=== PATIENT | male | born 1995 | race Caucasian/White ===

== ENCOUNTER 2016-10-23 00:56 | Inpatient (IN) | payer OTHER ==
[~2016-10-23] VITALS: Ht 162.6 cm; Wt 64.9 kg
[2016-10-23] MEDS ORDERED: NS 1,000 ML IV ONE (01:15)
[2016-10-23 01:39] VITALS: O2SAT 100
[2016-10-23 01:41] LABS: ABG BASE EXCESS -3.1 (-2.0-2.0); ABG PARTIAL PRESSURE O2 146.5 mmHg (75.0-100.0); ABG TOTAL CO2 22.1 MEQ/L (22.0-29.0); ABG pH (ARTERIAL) 7.396 UNITS (7.350-7.450)
[2016-10-23 01:48] LABS: BASO % 0.6 % (0.0-1.0); EOS # 0.1 K/mm3 (0.0-0.50); EOS % 1.6 % (0.0-3.0); LARGE UNSTAINED CELL # 0.1 K/mm3 (0.0-0.4); LARGE UNSTAINED CELL % 1.6 % (0.0-4.0); MEAN CORPUSCULAR HEMOGLOBIN 31.6 pg (27.0-33.0); MEAN CORPUSCULAR HGB CONC 34.8 g/dl (32.0-36.5); MEAN CORPUSCULAR VOLUME 90.8 fl (80.0-96.0); MONO # 0.3 K/mm3 (0.0-0.8); MONO % 4.7 % (0.0-5.0); NEUTROPHILS # 4.2 K/mm3 (1.8-7.7); NEUTROPHILS % 63.5 % (36.0-66.0); PLATELET COUNT, AUTOMATED 216 k/mm3 (150-450); RED CELL DISTRIBUTION WIDTH 12.7 % (11.5-14.5); WHITE BLOOD COUNT 6.6 K/mm3 (4.0-10.0)
[2016-10-23 01:51] LABS: ALBUMIN 4.3 GM/DL (3.2-5.2); ALKALINE PHOSPHATASE 105 U/L (45-117); ALT/SGPT 21 U/L (12-78); ANION GAP 11 MEQ/L (8-16); AST/SGOT 26 U/L (15-37); BILIRUBIN,DIRECT 0.2 MG/DL (0.0-0.2); BILIRUBIN,TOTAL 0.7 MG/DL (0.2-1.0); BLOOD UREA NITROGEN 7 MG/DL (7-18); CALCIUM LEVEL 8.1 MG/DL (8.5-10.1); CARBON DIOXIDE LEVEL 27 MEQ/L (21-32); CHLORIDE LEVEL 105 MEQ/L (98-107); CREATININE FOR GFR 0.88 MG/DL (0.70-1.30); GLUCOSE, FASTING 75 MG/DL (70-105); POTASSIUM SERUM 4.1 MEQ/L (3.5-5.1); SODIUM LEVEL 143 MEQ/L (136-145); TOTAL PROTEIN 7.6 GM/DL (6.4-8.2)
[2016-10-23 03:15] LABS: METHADONE URINE NEGATIVE (NEGATIVE)
--- NOTE | 2016-10-23 04:40 | REPUSA ---
CLINICAL HISTORY: Overdose. TECHNIQUE: Multiple axial brain CT scan sections were obtained from base to vertex without contrast a dministration. COMMENTS: The study shows normal configuration of sella turcica. There are no intra or extra-axial collections. There is no mass effect or midline shift. There is no evidence of hematoma formation. No hydrocephal us is present. No abnormal calcifications are noted. No significant abnormalities are seen either in the posterior fossa or supratentorial compartment. The sinuses and mastoid air cells are patent. IMPRESSION: No evidence of acute intracranial pathology. Thank you for your kind referral of this patient.
[2016-10-23] MEDS ORDERED: LORazepam 2 MG/ML VIAL (J2060) IV PRN ×2 (06:15)
[2016-10-23] MEDS: NS 1,000 ML IV SCH ×3 (06:15→20:05)
--- NOTE | 2016-10-23 06:52 | HPE ---
DATE OF ADMISSION: 10/23/2016 PRIMARY CARE PROVIDER: [facility] CHIEF COMPLAINT: Unresponsiveness. 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 The patient himself is nonverbal at this time and so the history is obtained via verbal report from the emergency department (ED) provider and the patient's girlfriend who is bedside. She states that she was with him earlier on in the day, he was in his usual state of health, and when she passed by to go visit him in the evening she found an emergency response team in his barr[place] as he was unresponsive. She entered the room and noted that he normally takes a sleep aid, diphenhydramine 25 mg tablets, she tells me that he quite frequently takes two of them to help him sleep at night as he suffers from significant insomnia. She denies that he has expressed any suicidal or homicidal ideation prior to the evening. The pill bottle is a 100 tablet bottle but she states that the patient has had it for a significant amount of time and although some people in the barracks had said there was 60 pills in the bottle, she feels it was more likely closer to 20. She states that he does not have any other medications, [id number] or prescription, and there were no illicit substances in his barracks. At the present time the patient does not answer questions or follow commands. PAST MEDICAL HISTORY: Per the patient's girlfriend: None. PAST SURGICAL HISTORY: Appendectomy. 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 He has a girlfriend who comes into [place] emergency room[place] She denies tobacco, admits that he does drink occasionally. FAMILY HISTORY: Unable to be obtained. REVIEW OF SYSTEMS: Unable to be obtained. ALLERGIES: Unable to be obtained, but the girlfriend does not know of any. PHYSICAL EXAMINATION: The patient is tachycardic at 135, there is no documented temperature in the emergency room (ER), respiratory rate is 18, blood pressure 139/86, oxygen saturation 99% on room air. GENERAL: He is a young, well-built, muscular, male who is sitting in the stretcher. He is awake, alert, he makes eye contact and tracks, but does not follow commands. He is grasping things in the air in front of him in an attempt to get a stretcher and is calmed down by his girlfriend. He does appear to be quite tremulous and is in mild distress. HEENT: Dilated pupils, very dry mucous membranes. CARDIOVASCULAR: S1, S2, regular and tachycardic. RESPIRATORY EXAM: Clear. ABDOMINAL EXAM: Diminished bowel sounds. EXTREMITIES: No clubbing, cyanosis, or edema. LABORATORY STUDIES: WBC 6.6, hemoglobin 15.1, hematocrit 43.3, platelet count 216. Chemistry panel: Sodium 143, potassium 4.1, chloride 105, bicarbonate 27, BUN 7, creatinine 0.8. TSH within normal limits. Blood gas: 7.3, pCO2 35, pO2 146. Toxicology: 0.155 ethyl alcohol (EtOH) level, but otherwise is negative. IMAGING: The patient had a CT scan of the head which revealed no evidence of acute intracranial pathology. Chest xray, which does not have a formal report at this time, but does not appear to have any acute findings by my quick read. ASSESSMENT AND PLAN: This is a 21-year-old man status post diphenhydramine overdose. 1. Diphenhydramine overdose and alcohol intoxication. It is unclear at this time if this was a suicide attempt or not. The girlfriend could not express any reason why the patient would have taken more than his usual two pills, however he does appear to be behaving quite classically as an anticholinergic toxicity. His EKG does not show any QRS or QT prolongation. I have spoken with Poison Control who have recommended Valium 5 mg intravenous (IV) as well as Ativan as needed. We will give him these medications and should he not respond or remain hypertensive and unable to be restful, may require physostigmine. At this time, we cannot really know for sure if the patient has taken any other substances that are potentially not picked up by our toxicology screen. The history is obtained mostly by the patient's girlfriend who is bedside and I suspect she might be minimizing his presentation. Will recheck an EKG. I did discuss with patient's girlfriend at bedside that as we do not know the true amounts he ingested, there is a chance this could get significantly worse before it gets better. We will provide him normal saline at 125 mL/hour, admit him to the progressive care unit, and monitor him on telemetry. We will have him on a one-to-one sitter. He will likely require a psychiatric consultation after he is detoxed from his overdose. 2. Deep venous thrombosis (DVT) prophylaxis. The patient will be on Lovenox. DISPOSITION: The patient is admitted to the progressive care unit to the care of Dr. Fonseca who will continue following the patient at 7 a.m.
[2016-10-23 09:34] LABS: MEAN CORPUSCULAR HEMOGLOBIN 31.4 pg (27.0-33.0); MEAN CORPUSCULAR HGB CONC 34.8 g/dl (32.0-36.5); MEAN CORPUSCULAR VOLUME 90.4 fl (80.0-96.0); RED CELL DISTRIBUTION WIDTH 12.6 % (11.5-14.5); WHITE BLOOD COUNT 11.6 K/mm3 (4.0-10.0)
[2016-10-23 09:54] LABS: ANION GAP 10 MEQ/L (8-16); BLOOD UREA NITROGEN 6 MG/DL (7-18); CALCIUM LEVEL 8.8 MG/DL (8.5-10.1); CARBON DIOXIDE LEVEL 23 MEQ/L (21-32); CHLORIDE LEVEL 106 MEQ/L (98-107); CREATININE FOR GFR 0.94 MG/DL (0.70-1.30); GLUCOSE, FASTING 72 MG/DL (70-105); POTASSIUM SERUM 4.4 MEQ/L (3.5-5.1); SODIUM LEVEL 139 MEQ/L (136-145)
[2016-10-23] MEDS ORDERED: ATROPINE SULF 1MG/10ML SYRINGE (J0461) IV PRN (10:15)
[2016-10-23] MEDS ORDERED: PHYSOSTIGMINE SALICYLATE 2 MG/2 ML AMP IV ONE (10:30)
[2016-10-23 10:35] VITALS: BP 148/87
--- NOTE | 2016-10-23 10:51 | REP ---
REASON: Drug overdose. COMPARISON: None. FINDINGS: The technique utilized in obtaining the radiograph has magnified the cardiac silhouette and accentuated the interstitial markings. The superior mediastinal structures are midline. The cardiac silhouette is unremarkable in size, shape, and position. The diaphragmatic surfaces of the lungs are regular, and the costophrenic angles are clear. The pulmonary jama are clear. The imaged osseous structures are intact. IMPRESSION: There is no acute cardiopulmonary disease. Signed by Antonio Zepeda DO 10/23/2016 11:25 A
[2016-10-23] MEDS: ENOXAPARIN 40 MG/0.4 ML SYRINGE (J1650) SC SCH (11:26)
[2016-10-23] MEDS: PANTOPRAZOLE 40MG INJ (PROTONIX) (C9113) IV SCH (11:26)
[2016-10-23 12:00] VITALS: BP 136/106
--- NOTE | 2016-10-23 14:43 | ECGEPIP ---
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
[2016-10-23 16:00] VITALS: BP 134/79
--- NOTE | 2016-10-23 19:48 | ECGEPIP ---
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
--- NOTE | 2016-10-23 19:50 | ECGEPIP ---
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
[2016-10-23 20:00] VITALS: BP 146/78
[2016-10-24] VITALS: BP 138/83
[2016-10-24 04:00] VITALS: BP 123/61
[2016-10-24] MEDS: NS 1,000 ML IV SCH ×2 (04:02→11:43)
[2016-10-24 05:20] LABS: MEAN CORPUSCULAR HEMOGLOBIN 30.9 pg (27.0-33.0); MEAN CORPUSCULAR HGB CONC 33.8 g/dl (32.0-36.5); MEAN CORPUSCULAR VOLUME 91.4 fl (80.0-96.0); RED CELL DISTRIBUTION WIDTH 12.3 % (11.5-14.5); WHITE BLOOD COUNT 6.1 K/mm3 (4.0-10.0)
[2016-10-24 05:23] LABS: ANION GAP 8 MEQ/L (8-16); BLOOD UREA NITROGEN 15 MG/DL (7-18); CALCIUM LEVEL 8.1 MG/DL (8.5-10.1); CARBON DIOXIDE LEVEL 28 MEQ/L (21-32); CHLORIDE LEVEL 105 MEQ/L (98-107); CREATININE FOR GFR 1.08 MG/DL (0.70-1.30); GLUCOSE, FASTING 73 MG/DL (70-105); POTASSIUM SERUM 4.1 MEQ/L (3.5-5.1); SODIUM LEVEL 141 MEQ/L (136-145)
[2016-10-24 08:00] VITALS: BP 124/66
[2016-10-24] MEDS: ENOXAPARIN 40 MG/0.4 ML SYRINGE (J1650) SC SCH (08:54)
[2016-10-24] MEDS: PANTOPRAZOLE 40MG INJ (PROTONIX) (C9113) IV SCH (08:54)
[2016-10-24 12:00] VITALS: BP 119/67
--- NOTE | 2016-10-24 14:07 | DS.PDOC ---
Discharge Summary General Date of Admission Oct 23, 2016 at 06:25 Date of Discharge Discharge Summary PROCEDURES PERFORMED DURING STAY: None. ADMITTING DIAGNOSES: 1. . Benadryl overdose DISCHARGE DIAGNOSES: 1. . Benadryl overdose COMPLICATIONS/CHIEF COMPLAINT: Diphenhydramine Overdose. HISTORY OF PRESENT ILLNESS: . 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 According to the emergency response team at the [facility], the patient was found unresponsive. The patient had apparently taken an unknown amount of diphenhydramine. The patient was brought to [facility] for further evaluation and management. In the ER, the patient was noted to be nonresponsive and very agitated. His vital signs including his heart rate were noted to be in the 140s to 150s. In addition, the patient also had an elevated blood pressure level. The patient was started on Ativan and Valium with supportive treatment with IV fluid hydration. During the patient's stay here in the hospital, poison control was contacted regarding the patient's condition. They recommended that the patient receive physostigmine as he persistently displayed anti-cholinergic symptoms despite benzodiazepine therapy. The patient's EKG was checked, and the QRS duration and QTc intervals were noted to be within normal limits. The patient was given the aforementioned therapy, and subsequently improved significantly. Upon awakening , the patient states that he took the Benadryl medication as he was upset about his relationship with his girlfriend. At this time, the patient remains upset and depressed about his current situation. However, medically the patient has been stable. He has been monitored on telemetry and there have been no acute findings. Of note, poison control was contacted, and they have medically cleared the patient for transfer to the psych service. I have discussed the case with Dr. Lundberg of psychiatry, who will evaluate the patient for admission into the inpatient mental health unit. DISCHARGE MEDICATIONS: Please see below. ALLERGIES: Please see below. PHYSICAL EXAMINATION ON DISCHARGE: VITAL SIGNS: Please see below. GENERAL: Awake, alert, in no acute distress HEENT: Normocephalic, atraumatic NECK: No JVD CARDIOVASCULAR EXAMINATION: Normal rate, normal rhythm RESPIRATORY EXAMINATION: Clear to auscultation bilaterally ABDOMINAL EXAMINATION: Soft, nontender, nondistended EXTREMITIES: No erythema, tenderness of the extremities LABORATORY DATA: Please see below. IMAGING: CLINICAL HISTORY: Overdose. TECHNIQUE: Multiple axial brain CT scan sections were obtained from base to vertex without contrast administration. COMMENTS: The study shows normal configuration of sella turcica. There are no intra or extra-axial collections. There is no mass effect or midline shift. There is no evidence of hematoma formation. No hydrocephalus is present. No abnormal calcifications are noted. No significant abnormalities are seen either in the posterior fossa or supratentorial compartment. The sinuses and mastoid air cells are patent. IMPRESSION: No evidence of acute intracranial pathology. Thank you for your kind referral of this patient. PROGNOSIS: Medically stable at this time ACTIVITY: As tolerated. DIET: . Regular diet DISCHARGE PLAN: DISPOSITION: . DISCHARGE INSTRUCTIONS: 1. . Patient to be discharged to inpatient mental health unit for further psychiatric stabilization. DISCHARGE CONDITION: Stable. TIME SPENT ON DISCHARGE: Greater than 30 minutes. Vital Signs/I&Os Vital Signs Date Time Temp Pulse Resp B/P Pulse Ox O2 Delivery O2 Flow Rate FiO2 10/24/16 12:00 97.2 75 20 119/67 98 Room Air 10/23/16 01:39 2 I&O- Last 24 Hours up to 6 AM 10/24/16 06:00 Intake Total 2975 ml Output Total 875 ml Balance 2100 ml Laboratory Data Labs 24H Laboratory Tests 2 10/24/16 04:14: Anion Gap 8, Blood Urea Nitrogen 15#, Creatinine 1.08, Sodium Level 141, Potassium Level 4.1, Chloride Level 105, Carbon Dioxide Level 28, Calcium Level 8.1L CBC/BMP Laboratory Tests 10/24/16 04:14 Calcium Level 8.1 L, Red Blood Count 4.42, Mean Corpuscular Volume 91.4, Mean Corpuscular Hemoglobin 30.9, Mean Corpuscular Hemoglobin Concent 33.8, Red Cell Distribution Width 12.3 Discharge Medications No Active Prescriptions or Reported Meds Allergies Coded Allergies: No Known Allergies (Unverified , 10/23/16) ZIGGY OLIVAREZ MD Oct 24, 2016 14:07
[2016-10-24 16:00] VITALS: BP 133/73
[2016-10-24 19:55] VITALS: BP 136/81
[2016-10-25 06:00] VITALS: BP 116/56
[2016-10-25 07:10] LABS: MEAN CORPUSCULAR HEMOGLOBIN 31.9 pg (27.0-33.0); MEAN CORPUSCULAR HGB CONC 34.8 g/dl (32.0-36.5); MEAN CORPUSCULAR VOLUME 91.7 fl (80.0-96.0); RED CELL DISTRIBUTION WIDTH 12.3 % (11.5-14.5); WHITE BLOOD COUNT 5.4 K/mm3 (4.0-10.0)
[2016-10-25 07:23] LABS: ANION GAP 8 MEQ/L (8-16); BLOOD UREA NITROGEN 12 MG/DL (7-18); CALCIUM LEVEL 8.2 MG/DL (8.5-10.1); CARBON DIOXIDE LEVEL 29 MEQ/L (21-32); CHLORIDE LEVEL 106 MEQ/L (98-107); GLUCOSE, FASTING 99 MG/DL (70-105); POTASSIUM SERUM 3.6 MEQ/L (3.5-5.1); SODIUM LEVEL 143 MEQ/L (136-145)
[2016-10-25] MEDS: ENOXAPARIN 40 MG/0.4 ML SYRINGE (J1650) SC SCH (09:40)
[2016-10-25 14:00] VITALS: BP 133/78
--- NOTE | 2016-10-25 14:19 | IPNPDOC ---
Text Note Date of Service The patient was seen on 10/25/16. NOTE Subjective: 21 yo M was seen and examined at bedside. She denies runny nose, sore throat, ear pain, cough, weakness, fatigue, headache, dizziness, fevers, chills , chest pain, SOB, palpitations, nausea, vomiting, diarrhea, constipation, abdominal pain, rashes/lesions. Denies urinary changes, urinary retention, dysuria, hematuria, hematochezia. Objective: Vitals: T 97.4, P 83, RR 18, BP 116/56 (76), Pulse Ox: 94% on room air. I's/O's: 2590/750 mLs. +1840 mLs balance. Voids: 1. BMs: 0. General: Withdrawn male resting comfortably in bed, sitting up at head of bed. Patient awake, alert and oriented, verbal and able to answer questions appropriately. He does not appear to be in any acute distress. HEENT: Normocephalic Atraumatic. Grossly normal hearing bilaterally. Sclera Nonicteric. No external nasal lesions. Endocrinology: No thyromegaly. Neck: Supple. No cervical LAD bilaterally. Heart: Regular rate and rhythm, normal S1-S2. No murmurs, rubs, clicks or gallops Chest: Symmetrical chest rise bilaterally. Lungs: Clear to auscultation bilaterally. No wheezes, rales, or rhonchi. Abdomen: Active bowel sounds, soft, nontender, no masses to palpation. Extremities: No clubbing, cyanosis, edema. Without amputations/deformities. No pedal edema. Integumentary: No rashes or lesions observed. MSK: Can sit up without dizziness. Vascular: +2 radial pulses bilaterally. Psychiatric: Very withdrawn with a flat affect and low mood. Disinterested in answering questions. Low verbal tone. No signs of anxiety. Signs of depression seem evident. Laboratory data: Please see below. Imaging: No imaging done today. Assessment/Plan: ASSESSMENT: 21-year-old male is presenting for diphenhydramine overdose and alcohol intoxication. PLAN: #1. Diphenhydramine Overdose and Alcohol Intoxication status-post valium, ativan , atropine, and physostigmine: Sinus Tachycardia resolved. Patient's rate at 84 today. Prolonged QTc on EKG of 473 has resolved in most recent EKG with QTc of 363. QT prolongation most likely secondary to benadryl overdose. Patient having no acute complaints today and is stable, awake, alert, and oriented. No further medical management at this time. #2. Possible Suicidal Attempt/Harm to Self: Is being discharged from IM service and admitted/transferred to Inpatient Psychiatry Mental Health Unit today for investigation and treatment of any psychiatric condition or depressed mood or evaluation for why patient was trying to harm self. DVT prophylaxis: Lovenox. Immunizations as per protocol. VS,Fishbone, I+O VS, Fishbone, I+O Laboratory Tests 10/25/16 06:35 Calcium Level 8.2 L, Red Blood Count 4.47, Mean Corpuscular Volume 91.7, Mean Corpuscular Hemoglobin 31.9, Mean Corpuscular Hemoglobin Concent 34.8, Red Cell Distribution Width 12.3 Vital Signs Date Time Temp Pulse Resp B/P Pulse Ox O2 Delivery O2 Flow Rate FiO2 10/25/16 06:00 97.4 83 18 116/56 94 Room Air 10/23/16 01:39 2 I&O- Last 24 Hours up to 6 AM 10/25/16 06:00 Intake Total 2080 ml Output Total 750 ml Balance 1330 ml GME ATTESTATION GME ATTESTATION My preceptor for this patient encounter was Dr. Benedict Berger, and was physically present in the building during the encounter and was fully available. As needed , all aspects of the patient interview, examination, medical decision making process, and medical care plan development were reviewed and approved by the preceptor. Preceptor is aware and concurs with the plan as stated in the body of this note and will attest to such by his/her cosignature. ZIGGY EWING OGMN-1 Oct 25, 2016 14:19 Output Total 750 ml Balance 1330 ml ZIGGY EWING [facility] Oct 25, 2016 14:19
== END 2016-10-25 15:30 | DRG 918 ==
LOC: EDBD 00:56 → M ED 06:19 → M ED INP 06:25 → M ICU 10:40 → M MS5PR 10-24 19:36
PROVIDERS: ADMIT Internal Medicine; ATTEND Internal Medicine
DX: T45.0X2A Poisoning by antiallergic and antiemetic drugs, intentional self-harm, initial encounter (principal); F10.129 Alcohol abuse with intoxication, unspecified; Z91.5 Personal history of self-harm

== ENCOUNTER 2016-10-25 15:40 | Inpatient (IN) | payer OTHER ==
[~2016-10-25] VITALS: Ht 162.6 cm; Wt 62.6 kg
[2016-10-25 15:54] VITALS: BP 123/69
[2016-10-25] MEDS ORDERED: MAALOX 30 ML SUSP *UDC PO PRN (17:30)
[2016-10-25] MEDS ORDERED: MOM 30ML SUSPENSION UDC PO PRN (17:30)
[2016-10-25] MEDS ORDERED: ACETAMINOPHEN TAB 650MG DOSE (2X325MG) PO PRN (17:30)
[2016-10-25] MEDS ORDERED: traZODone 50 MG TAB PO PRN (17:30)
[2016-10-26 06:00] VITALS: BP 108/57
--- NOTE | 2016-10-26 08:59 | CR ---
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 The patient admitted that he had taken an overdose of diphenhydramine and that he had suicidal intent. He admits that he has been feeling depressed since his girlfriend of the past year and a half broke up with him. He says that the girlfriend says that he is not supportive of her schooling and that is why she broke up with him. He had been feeling hopeless and helpless. The patient does have a problem with chronic insomnia and takes diphenhydramine as a sleep aid. I did not elicit any other symptoms from the patient. I did not elicit any hypomanic or manic like symptoms or obsessive compulsive disorder (OCD) symptoms or posttraumatic stress disorder (PTSD) symptoms. PAST PSYCHIATRIC HISTORY: He denies any prior inpatient or outpatient psychiatric treatment. He denies that he has ever taken psychotropic medication. He denies that he has ever made a suicidal attempt in the past. FAMILY HISTORY: He says that he thinks there might be some family members with some psychiatric problems but he says "nobody talks about it". He denies any suicides in the family. SUBSTANCE ABUSE HISTORY: He denies any problems with alcohol or drugs. ABUSE HISTORY: He denies any history of being physically or sexually abused. MEDICAL HISTORY: The patient denies any past history of any medical problems. MENTAL STATUS EXAMINATION: He is alert and oriented times three. Eye contact is fair. He had just awoken and he seemed to be a little zones out at first but he was pleasant. He was not verbally spontaneous. There was no formal thought disorder noted. Psychomotor activity was decreased. His mood was depressed. Affect was flat. He was not psychotic. He was denying being suicidal, however admitted to having suicidal intent when he overdosed. He denied homicidal ideations. Concentration is fair. Mood was depressed. Memory grossly intact. Insight and judgment is poor. DIAGNOSIS: Other specified depressive disorder, rule out adjustment disorder with depressed mood without major depressive disorder. TREATMENT PLAN: At this point, the patient made a serious suicidal attempt via overdose. He remains very depressed and still a danger to himself. He will be transferred to the inpatient mental health unit as soon as he is medically cleared.
--- NOTE | 2016-10-26 10:22 | HPEPDOC ---
Medical History and Physical Date of Admission Oct 25, 2016 at 15:40 History and Physical PCP: MY ATTENDING: Dr. Benedict Berger HPI: 21yoM admitted to [facility] for unspecified depressive disorder, being medically examined today. No acute medical complaints today. Pt was admitted from 10/23/16-10/25/16 related to diphenhydramine overdose of unknown amount. Patient was medically stabilized and cleared for admission to [facility] 10/25/16. Denies any fevers, chills, weakness, fatigue, LARSEN, CP, SOB, cough, palpitations, abdominal pain, N/V/D or changes in bowel or bladder habits. 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 ROS: As noted in HPI, otherwise 11pt ROS of systems reviewed and remarkable only for subungual hematoma left middle finger, the patient states related to slamming a door accidentally on his finger a few weeks ago. PE: GEN: 21yoM, appears stated age. Well-nourished, well developed. No acute distress. Alert and oriented x 3. Pleasant, interactive. HEENT: Normocephalic, atraumatic. Pupils are equal, round, and reactive to light. Extraocular movements are intact. No nystagmus appreciated. Sclera are nonicteric. Conjunctiva without injection. Nose midline. Nasal turbinates without bogginess. EACs both patent BL. TMs both visualized and balbuena with good cone of light, no bulging or erythema. No facial asymmetry. Moist mucous membranes. Dentition fair. Pharynx pink and moist, no cobblestoning. Neck supple , trachea midline. No lymphadenopathy or thyromegaly appreciated. CHEST: Regular rate and rhythm, +S1, +S2 LUNGS: Clear to auscultation bilaterally. No wheezes, rales, or rhonchi. Breathing appears symmetric and easy. Patient is speaking in full sentences. No accessory muscle use. ABD: Round, soft, non-tender, non-distended. +Bowel sounds throughout. No rebound or guarding. No costovertebral angle tenderness. EXT: Pulses 2+ bilaterally dorsalis pedis and radial. No lower extremity edema appreciated. SKIN: [place], dry, warm. Capillary refill <2sec. No rashes. NEURO: Alert and oriented x 3. Cranial nerves III-XII are intact. No focal deficits appreciated. EK10/23/16 SINUS TACHYCARDIA NONSPECIFIC T-WAVE ABNORMALITY ABNORMAL RHYTHM ECG NO PRIOR A&P: 21yoM admitted to [facility] for unspecified depressive disorder, 1. Psych. Plan per Psychiatry. EKG on file. 2. Nicotine dependence. Patch available. 3. Borderline EKG. No cardiac signs or symptoms appreciated on exam, follow with PCP. 4. Follow up with PCP on discharge. 5. Staff member present throughout exam, rajinder Drummond. Vital Signs Vital Signs Label Value Date Time Patient Temperature 97.9 degrees F 10/26/16 0600 Pulse 60 10/26/16 0600 Respiratory Rate 16 bpm 10/26/16 0600 Blood Pressure Assessment 108/57 (74) 10/26/16 0600 Bedside Pulse Oximetry 97 % 10/25/16 1554 Item Value Date Time Oxygen Delivery Method Room Air 10/25/16 1554 Laboratory Data Labs 24H Item Value Date Time White Blood Count 5.4 K/mm3 10/25/16 0635 Red Blood Count 4.47 M/mm3 10/25/16 0635 Hemoglobin 14.3 g/dl 10/25/16 0635 Hematocrit 41.0 % L 10/25/16 0635 Mean Corpuscular Volume 91.7 fl 10/25/16 0635 Mean Corpuscular Hemoglobin 31.9 pg 10/25/16 0635 Mean Corpuscular Hemoglobin Concent 34.8 g/dl 10/25/16 0635 Red Cell Distribution Width 12.3 % 10/25/16 0635 Platelet Count 182 k/mm3 10/25/16 0635 Sodium Level 143 MEQ/L 10/25/16 0635 Potassium Level 3.6 MEQ/L 10/25/16 0635 Chloride Level 106 MEQ/L 10/25/16 0635 Carbon Dioxide Level 29 MEQ/L 10/25/16 0635 Anion Gap 8 MEQ/L 10/25/16 0635 Blood Urea Nitrogen 12 MG/DL 10/25/16 0635 Creatinine 0.90 MG/DL 10/25/16 0635 Fasting Glucose 99 MG/DL 10/25/16 0635 Calcium Level 8.2 MG/DL L 10/25/16 0635 Thyroid Stimulating Hormone (TSH) 1.150 uIU/ML 10/23/16 0108 Salicylates Level < 1.7 MG/DL L 10/23/16 010 Urine Opiates Screen NEGATIVE 10/23/16125 Urine Methadone Screen NEGATIVE 10/23/16 0126 Acetaminophen Level < 2.0 UG/ML L 10/23/16107 Urine Barbiturates Screen NEGATIVE 10/23/16125 Urine Phencyclidine Screen NEGATIVE 10/23/16125 Urine Amphetamines Screen NEGATIVE 10/23/16 012 Urine Benzodiazepines Screen NEGATIVE 10/23/16125 Urine Cocaine Metabolite Screen NEGATIVE 10/23/16125 Urine Cannabinoids Screen NEGATIVE 10/23/16125 Ethyl Alcohol Level 0.155 % H 10/23/16 010 Home Medications No Active Prescriptions or Reported Meds Allergies Coded Allergies: No Known Allergies (Unverified , 10/23/16) Acacia Lacy Oct 26, 2016 10:22
--- NOTE | 2016-10-26 10:29 | HPEPDOC ---
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 He describes that he does not remember much of the last 2 days but was apparently found by his fellow soldiers who had been closely watching him as he was "some bad stuff". He described that 2 weeks ago his goal for another last year and a half broke up with him and that he had held out hope that she would return to him but after realizing a few days ago that that was not like an option he became much more anxious and depressed and the sudden and intense manner. He describes that he then began to consider the idea of taking an overdose of sleeping pills. He denies experiencing any conscious depression after his girlfriend broken up with them. He describes experiencing more worried thoughts but no overt panic. He describes that his work had not been affected significantly from his perspective. PAST PSYCHIATRIC HISTORY: Prior Psychiatric Disorder: No prior diagnoses. Outpatient Treatment: No outpatient treatment prior, this is his first interactional mental health. Suicidal/Self injurious: None. Psychotropic Medication History: None. ALLERGIES: Please see below. HOME MEDICATIONS: Per record as follows: None PAST MEDICAL/SURGICAL HISTORY: None. FAMILY PSYCHIATRIC HISTORY: Denies any current family psychiatric history, although gives a caveat that he is not well aware of his father's side of the family's mental/medical histories. SOCIAL HISTORY: The patient grew up in [place] to 2 parents. He is the second oldest of 4 children with one older sister and 2 younger sisters. He describes that his parents when he was 9 years old and that afterwards his father maintained only intermittent contact which frustrated him. He describes that eventually this first year high school he cut off contact with his father completely and has not spoken to him in the last year and a half. That after he graduated high school he spent the summer working for [employer] but found the work to be menial and eventually want to "serve his country". He describes after joining the that the expansive fail to meet his expectations and that he was at this time pursuing it as a means to an end. 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 He issues states he plans returned to [place]. He states he has not traveled much in his life and has only been aware of [place] and [place] for the majority of his career. SUBSTANCE ABUSE HISTORY: The patient states that he smoked tobacco since he was a young man and currently smokes 10 cigarettes a day. He describes that the previous evening he had a drug dream about tobacco. He states that he has experimented with marijuana in the past as a freshman in high school but since not used any. He denies using any harder drugs such as heroin, cocaine or methamphetamine. LEGAL HISTORY: Alludes to no legal history. Vital Signs Date Time Temp Pulse Resp B/P Pulse Ox O2 Delivery O2 Flow Rate FiO2 10/25/16 15:54 98.7 79 18 123/69 97 Room Air LABORATORY DATA: Please see below. REVIEW OF SYSTEMS: Affective: The patient admits to only a short period of depressed mood but denies any previous episodes of depression that was unprovoked lasted longer than a few days. She denies any symptoms consistent with gopi such as increased activity decreased need for sleep impulsivity and distractibility lasting longer in 5 days. Anxiety:The patient describes as above increased worry or his breakup but does not allude to any more enhanced symptoms. He denies expressing any episodes of punctuated overt panic Psychotic: The patient denies expressing auditory or visual hallucinations MENTAL STATUS EXAMINATION: Patient is a 21-year old male, who is pleasant, cooperative and well-groomed, who is found sleeping in his bed but easily awoken. Speech: Is, normal in rate, volume, and articulation, and is coherent and spontaneous Language skills are intact Thought processes: Clear. Thought content: Linear and logical Abstract reasoning, and computation: Intact. Description of associations: Intact Description of abnormal or psychotic thoughts: Denies any auditory or visual hallucinations. Does not appear to be responding to internal stimuli makes no overt threat against himself or others. Judgment: Poor. Insight: Poor. Orientation to time, place and person. Recent and remote memory: Recent and remote memory appear grossly intact as evidenced by his ability to remember most of his events leading up to his overdose and autobiographical information. His immediate information appears somewhat impaired as he is unable to remember the exact events of last 2 days likely due to his overdose of diphenhydramine Attention span and concentration: Good. Language: Normal. Fund of knowledge: Adequate. Mood: "Okay". Affect: somewhat dysthymic with a constricted affect. DIAGNOSES: 1. Unspecified depression. 2. Unspecified anxiety. 3. Tobacco use disorder, severe, in controlled setting. ASSESSMENT: 21-year-old male with no past psychiatric history presents after severe overdose of diphenhydramine. His early attachments appeared marred by a paternal figure who was generally not present in his life. He had recently broken up with a long-term romantic relationship and subsequently hears to have deferred much of his emotional processing. He experienced much of his emotions heavily once and attempted to take his own life. PROBLEM LIST: 1. Depression. 2. anxiety. 3. Recital thoughts. INITIAL TREATMENT PLAN: 1. Patient was admitted on 37 legal status. 2. Complete history was obtained. 3. With patients permission, family will be contacted and database will be expanded. 4. Patients medication regimen will be reviewed and changed accordingly. 5. Patient will be provided with protected environment. 6. Patient will be treated with individual, group, and milieu therapies. 7. Patient will receive supportive psych-education. 8. Discharge planning will commence immediately. 9. Outpatient follow-up treatment will be strongly recommended. 10. The initial treatment plan will focus initially on: * Depression. * Risk for suicide. * Substance abuse, tobacco 11. We will give patient information on antidepressants and discussed medication options ESTIMATED LENGTH OF STAY: 3-5 DAYS. TIME SPENT COUNSELING AND COORDINATING INITIAL CARE: 30 minutes. Medications No Active Prescriptions or Reported Meds Allergies Coded Allergies: No Known Allergies (Unverified , 10/23/16) GME ATTESTATION My preceptor for this patient encounter was physically present in the building during the encounter and was fully available. As needed, all aspects of the patient interview, examination, medical decision making process, and medical care plan development were reviewed and approved by the preceptor. Preceptor is aware and concurs with the plan as stated in the body of this note and will attest to such by his/her cosignature. ANDREY ANDERSEN DO Oct 26, 2016 10:29
[2016-10-26] MEDS: NICOTINE 7 MG/24 HR TRANSDERMAL TD SCH (12:29)
[2016-10-26 12:30] VITALS: BP 118/69
[2016-10-26 18:00] VITALS: BP 110/57
[2016-10-26 21:16] VITALS: BP 118/69
[2016-10-27 06:19] VITALS: BP 93/50
[2016-10-27] MEDS: NICOTINE 7 MG/24 HR TRANSDERMAL TD SCH (09:34)
[2016-10-27 12:00] VITALS: BP 133/66
[2016-10-27 18:00] VITALS: BP 132/75
--- NOTE | 2016-10-27 18:50 | IPNPDOC ---
[facility] [place] DATE OF SERVICE: 10/27/16 HISTORY: The patient met with today both in group and individually. He describes that he was working through on to describe that he was attempting to cope with them in understanding the larger picture. He appears to become very psychologically minded and engaged well in the group. 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 He described that he felt fairly well supported returning home and was interested to return home. Her nursing staff patient has been compliant and nondisruptive on the keenan. VITAL SIGNS: See below. NEW TEST RESULTS: None. CURRENT MEDICATIONS: See below. MENTAL STATUS EXAMINATION: Patient is a 21-year old male, who is pleasant and cooperative. Speech: Is spontaneous and fluid. Language skills are intact. Thought processes including: Linear and logical. Thought content: Future orientated. Abstract reasoning, and computation: Intact. Description of associations: Intact. Description of abnormal or psychotic thoughts: Denies any suicidal, homicidal ideation. Denies any auditory or visual hallucinations. Does not appear to be responding to internal stimuli. Judgment: Good. Insight: Good. Orientation to alert and oriented 3. Recent and remote memory: Grossly intact. Attention span and concentration: Good. Language: Normal. Fund of knowledge: Good. Mood: "Good". Affect: Euthymic with a full range. DIAGNOSES: 1. Unspecified depressive disorder. 2. Unspecified anxiety disorder. 3. Tobacco use disorder, severe, and controlled setting. ASSESSMENT: 21-year-old male with a history of a severe overdose of diphenhydramine whom presented the inpatient keenan whom appears to have stabilized primarily with group and individual psychotherapy. He has not required any medications and spontaneously stabilized. He has been able to discuss early relational issues that appeared to be centered to many of his current symptoms. MANAGEMENT PLAN: 1. Continue nicotine replacement therapy 2. Continue to offer when necessary trazodone 3. Plan to discharge tomorrow after chain of command meeting TIME SPENT: 30 minutes. Vital Signs Vital Signs Date Time Temp Pulse Resp B/P Pulse Ox O2 Delivery O2 Flow Rate FiO2 10/27/16 12:00 97.0 91 16 133/66 10/26/16 21:16 Current Medications Current Medications Acetaminophen (Tylenol Tab) 650 mg Q6HP PRN PO HEADACHE or DISCOMFORT; Start at 17:30; Stop 11/24/16 at 17:29 Al Hydrox/Mg Hydrox/Simethicone (Mylanta) 30 ml Q4HP PRN PO HEARTBURN/ INDIGESTION; Start 10/25/16 at 17:30; Stop 11/24/16 at 17:29 Magnesium Hydroxide (Milk Of Magnesia) 30 ml DAILYPRN PRN PO CONSTIPATION; Start 10/25/16 at 17:30; Stop 11/24/16 at 17:29 Nicotine (Nicoderm Cq 7 Mg) 1 patch DAILY TD Last administered on 10/27/16t 09: 34; Start 10/26/16 at 09:00; Stop 11/25/16 at 08:59 Trazodone HCl (Desyrel) 50 mg QHSP PRN PO INSOMNIA; Start 10/25/16 at 17:30; Stop 11/24/16 at 17:29 Allergies Coded Allergies: No Known Allergies (Unverified , 10/23/16) GME ATTESTATION My preceptor for this patient encounter was physically present in the building during the encounter and was fully available. As needed, all aspects of the patient interview, examination, medical decision making process, and medical care plan development were reviewed and approved by the preceptor. Preceptor is aware and concurs with the plan as stated in the body of this note and will attest to such by his/her cosignature. ANDREY ANDERSEN DO Oct 27, 2016 18:50
[2016-10-28 06:14] VITALS: BP 114/56
[2016-10-28] MEDS: NICOTINE 7 MG/24 HR TRANSDERMAL TD SCH (09:00)
--- NOTE | 2016-10-28 17:51 | DS.PDOC ---
[facility] Discharge Summary Discharge Summary DATE OF ADMISSION: Oct 25, 2016 at 15:40 DATE OF DISCHARGE: Oct 28, 2016 at 10:20 DISCHARGE DIAGNOSES: 1. Unspecified depressive disorder. 2. Unspecified anxiety disorder. 3. Tobacco use disorder, severe, and controlled setting. REASON FOR ADMISSION: The patient was admitted from the medical floor after a suicidal overdose of diphenhydramine. He describes that this was a sudden and impulsive act after he had realized that he would not be able to repair his relationship with his girlfriend. CONSULTANTS INVOLVED: None TREATMENT AND PROGRESS ON THE UNIT : The patient was observed after he first presented to the keenan. He first was shy and introverted. However over time he became more amenable to staff interventions and attended groups fairly regularly. During process group he appeared to engage in psychological and affective processing of the various issues that led to his admission. He had became more psychologically minded. Medications were discussed however, after he improved,he ultimately decided against them. He was discharged home with plans for outpatient psychotherapy. 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 He has no previous psych history however engaged in therapeutic milieu and group psychotherapy which appeared to give him much benefit. He gained much insight and was able to cope with his stressors more effectively. He did not require any medications in order to stabilize MENTAL STATUS EXAMINATION ON DISCHARGE: Patient is a 21-year old male, who is pleasant, cooperative and well kempt . Speech is spontaneous and fluid. Language skills are intact. Thought processes including: Linear logical. Thought content: Some anxiety about returning home but future orientated. Abstract reasoning, and computation: Intact. Description of associations: Intact. Description of abnormal or psychotic thoughts: Denies any suicidal, homicidal ideation denies any auditory or visual hallucinations. Does not appear to be responding to internal stimuli. Does not endorse any bizarre paranoid thoughts. Judgment: Good. Insight: Good. Orientation to alert and oriented 3. Recent and remote memory: Grossly intact. Attention span and concentration: Good. Language: Normal. Fund of knowledge: Good. Mood: "Great". Affect: Euthymic with a full range. MEDICATIONS ON DISCHARGE: None PLAN/FOLLOWUP ARRANGEMENTS: The patient was arranged to follow up in outpatient [facility] for psychotherapy. At this time don't believe the patient will require medications that would do well in individual psychotherapy. The amount of time spent in the coordination of care for this patient was approximately 30 minutes. Vital Signs Vital Sign - Last 24 Hours 10/27/16 10/28/16 18:00 06:14 Temp 98.0 98.1 Pulse 79 54 Resp 18 18 B/P 132/75 114/56 Medications No Active Prescriptions or Reported Meds Allergies Coded Allergies: No Known Allergies (Unverified , 10/23/16) GME ATTESTATION My preceptor for this patient encounter was physically present in the building during the encounter and was fully available. As needed, all aspects of the patient interview, examination, medical decision making process, and medical care plan development were reviewed and approved by the preceptor. Preceptor is aware and concurs with the plan as stated in the body of this note and will attest to such by his/her cosignature. ANDREY ANDERSEN DO Oct 28, 2016 17:51 ANDREY ANDERSEN DO Oct 28, 2016 17:51
== END 2016-10-28 10:20 | disposition home or self-care (01) | DRG 881 ==
LOC: M PSY 15:40
PROVIDERS: ADMIT Internal Medicine Addiction Medicine; ATTEND Internal Medicine Addiction Medicine
DX: F32.9 Major depressive disorder, single episode, unspecified (principal); F41.9 Anxiety disorder, unspecified; F17.200 Nicotine dependence, unspecified, uncomplicated; R94.31 Abnormal electrocardiogram [ECG] [EKG]; Z91.5 Personal history of self-harm

== ENCOUNTER 2016-11-29 16:00 | Inpatient (IN) | payer OTHER ==
[~2016-11-29] VITALS: Ht 162.6 cm; Wt 64.8 kg
[2016-11-29 19:34] LABS: MEAN CORPUSCULAR HEMOGLOBIN 30.1 pg (27.0-33.0); MEAN CORPUSCULAR HGB CONC 32.8 g/dl (32.0-36.5); MEAN CORPUSCULAR VOLUME 91.6 fl (80.0-96.0); RED CELL DISTRIBUTION WIDTH 11.8 % (11.5-14.5); WHITE BLOOD COUNT 6.8 K/mm3 (4.0-10.0)
[2016-11-29 19:46] LABS: METHADONE URINE NEGATIVE (NEGATIVE)
[2016-11-29 19:47] LABS: ALBUMIN 4.3 GM/DL (3.2-5.2); ALKALINE PHOSPHATASE 102 U/L (45-117); ALT/SGPT 27 U/L (12-78); ANION GAP 7 MEQ/L (8-16); AST/SGOT 15 U/L (15-37); BILIRUBIN,DIRECT 0.2 MG/DL (0.0-0.2); BILIRUBIN,TOTAL 0.8 MG/DL (0.2-1.0); BLOOD UREA NITROGEN 13 MG/DL (7-18); CARBON DIOXIDE LEVEL 31 MEQ/L (21-32); CHLORIDE LEVEL 100 MEQ/L (98-107); CREATININE FOR GFR 0.89 MG/DL (0.70-1.30); GLUCOSE, FASTING 71 MG/DL (70-105); POTASSIUM SERUM 3.7 MEQ/L (3.5-5.1); SODIUM LEVEL 138 MEQ/L (136-145); TOTAL PROTEIN 8.2 GM/DL (6.4-8.2)
[2016-11-29 22:02] VITALS: BP 136/79
[2016-11-29] MEDS ORDERED: ACETAMINOPHEN TAB 650MG DOSE (2X325MG) PO PRN (23:00)
[2016-11-29] MEDS ORDERED: traZODone 50 MG TAB PO PRN (23:00)
[2016-11-29] MEDS ORDERED: MOM 30ML SUSPENSION UDC PO PRN (23:00)
[2016-11-29] MEDS ORDERED: MAALOX 30 ML SUSP *UDC PO PRN (23:00)
[2016-11-30 06:17] VITALS: BP 116/58
[2016-11-30] MEDS: NICOTINE 14 MG/24 HR TRANSDERMAL TD SCH (09:53)
[2016-11-30 12:00] VITALS: BP 120/70
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
[2016-11-30 18:00] VITALS: BP 116/68
[2016-11-30 22:01] VITALS: BP 126/71
--- NOTE | 2016-11-30 22:42 | HPE ---
DATE OF ADMISSION: 11/30/2016 HISTORY OF PRESENT ILLNESS: Please refer to psychiatric history and evaluation for further details on this admission. This examination and history is intended for medical issues that may need treatment, follow up, or consult on this 21-year-old male. ALLERGIES: No known drug allergies. 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 He smokes anywhere from 10 cigarettes a day up to a pack. Takes about three drinks per month. PAST MEDICAL HISTORY: Insomnia. PAST SURGICAL HISTORY: 1. Tonsillectomy/adenoidectomy. 2. Appendectomy. 3. Left eyelid repair. FAMILY HISTORY: Noncontributory. HOME MEDICATIONS: None. LABORATORIES STUDIES: Complete blood count (CBC) was normal. Sodium 138, potassium 3.7, chloride 100, CO2 31, BUN 13, creatinine 0.89. Toxicology screen was negative. A 10-system review was done and was negative. Patient is alert and oriented times three. Height 64 inches, weight 64.9, body mass index (BMI) 24.6, blood pressure 116/68, pulse 68, respirations 18, temperature 98.2. Pupils equal and reactive to light. Extraocular muscles intact. Cornea and sclerae is clear. Conjunctivae is normal. No facial asymmetry. Pharynx, tongue, gums pink and moist. Tongue is midline. Neck is supple without lymphadenopathy. No thyromegaly. No goiter. Carotids without bruits. Chest clear to auscultation without wheeze or retraction. Heart regular rate and rhythm. Abdomen benign. Bowel sounds positive. Genitourinary ()/Rectal: Not done. Extremities show equal strength. Full range of motion. No cyanosis, clubbing or edema. Peripheral pulses equal and palpable bilaterally. Skin is warm and dry. IMPRESSION AND PLAN: 1. Psychiatric plan per psychiatry. 2. No acute medical issues. 3. EKG 10/23/2016 on file, sinus tachycardia.
[2016-12-01 06:16] VITALS: BP 127/59
[2016-12-01] MEDS: NICOTINE 14 MG/24 HR TRANSDERMAL TD SCH (08:43)
--- NOTE | 2016-12-01 09:00 | IPNPDOC ---
[facility] Progress Note Progress Note DATE OF SERVICE: 12/01/16 HISTORY: Patient is a 21-year-old male, who was recently discharged from [facility] after an overdose on Benadryl with intent to kill self. Patient's reiterates today that's a friend informed his command that he was suicidal with a plan to kill self. Patient denies ever being suicidal, today informs screenplay writer that he feels female friend told command the patient was suicidal because friend did not approve of a sexual relationship in which patient was involved over the weekend. Patient does not deny making statements alluding to suicide/ self-harm, however, states statements were made in just and were "misunderstood " by friend. Patient reiterates today that he is glad he was not successful when he attempted suicide approximately one month ago, informs screenplay writer he feels he has "a lot to live for," and adds, "I wouldn't do that to my family." Patient denies symptoms of anxiety and depression, denies suicidal and homicidal ideation, denies audiovisual hallucinations, denies urge to engage in self-injurious behavior. Psychotropic medication options were again reviewed with patient today and patient continues to deny need for psychotropic medications. Patient states he is sleeping well, denies nightmares, indicates energy level and appetite are stable, and denies challenges with concentration and focus. Patient denies symptoms of physical pain and presents with no signs of acute distress at time of interaction. VITAL SIGNS: See below. NEW TEST RESULTS: No new results PAST MEDICAL/SURGICAL HISTORY: Labs on admission indicate low anion gap. History of tonsillectomy/adenoidectomy, appendectomy, left eyelid repair. Patient denies history of seizure or head injury. UDS negative 10/23/16 EKG SINUS TACHYCARDIA ABNORMAL RHYTHM ECG NONSPECIFIC ST T WAVE CHANGES PROLONGED QTC CURRENT MEDICATIONS: See below. MENTAL STATUS EXAMINATION: General appearance: Patient is a 21-year old male, who is pleasant and cooperative, makes fair eye contact, exhibits good personal hygiene, dressed in hospital clothing, ambulates with steady gait, appears stated age Speech: Of normal rate, rhythm, volume, coherent, spontaneous. Thought processes: Linear, logical, goal-directed. Thought content: Denies irrational, logical thinking, no paranoia noted. Abstract reasoning and computation: Requires further evaluation. Description of associations: Appear intact. Description of abnormal or psychotic thoughts: Denies any suicidal or homicidal ideation, denies auditory or visual hallucinations, does not appear to be responding to internal stimuli, does not endorse any bizarre or paranoid ideation, denies preoccupation with violence or obsessions. Judgment: Limited Insight: Limited. Orientation: A and O 3. Recent and remote memory: Appear intact. Attention span and concentration: Appear adequate. Fund of knowledge: Appears adequate. Mood: "Other than not wanting to be here, I'm feeling fine." Affect: Constricted, congruent with mood. DIAGNOSES: Unspecified depressive disorder, rule out adjustment disorder ASSESSMENT: Patient appears to be adjusting to unit, has been visible, attending groups, socializing well with peers, is cooperative with staff. Patient continues to indicate he does not need to be in the inpatient treatment environment, denies being suicidal, however, when confronted on statements related to suicidal thinking, does not deny. Patient minimizes symptoms and rationalizes behavior as, "I guess I'm seeing what happens when you joke about that sort of thing." Patient again denies alcohol use at time of incident. Patient continues to decline psychotropic medications citing lack of need and noting, "I don't like medication," also continues to deny need for medication for sleep. Will continue to monitor patient's adjustment to the inpatient environment and will encourage patient to consider taking psychotropic medications as indicated. Will evaluate patient's safety, resolution of suicidal ideation, and discharge readiness. Patient states when prepared for discharge he plans to return to [place] and will resume this patient in outpatient psychotherapy services and [facility], will evaluate need for IOP referral. MANAGEMENT PLAN: Encourage patient to consider taking psychotropic medication to address symptoms if appropriate Maintain safety precautions Patient to attend groups and participate in unit programming to develop coping strategies Engage patient in discharge planning process and arrange meeting with command to ensure safe discharge planning when appropriate Patient to follow up with [place] [facility] upon discharge TIME SPENT:25 minutes. Vital Signs Vital Signs Date Time Temp Pulse Resp B/P Pulse Ox O2 Delivery O2 Flow Rate FiO2 12/01/16 06:16 97.8 66 16 127/59 11/30/16 06:17 Room Air 11/29/16 21:38 97 Current Medications Current Medications Acetaminophen (Tylenol Tab) 650 mg Q6HP PRN PO HEADACHE or DISCOMFORT; Start at 23:00; Stop 12/29/16 at 22:59 Al Hydrox/Mg Hydrox/Simethicone (Mylanta) 30 ml Q4HP PRN PO HEARTBURN/ INDIGESTION; Start 11/29/16 at 23:00; Stop 12/29/16 at 22:59 Home Med (Med Rec Complete!) ASDIRECTED XX ; Start 11/29/16 at 21:15; Stop at 21:15; Status DC Magnesium Hydroxide (Milk Of Magnesia) 30 ml DAILYPRN PRN PO CONSTIPATION; Start 11/29/16 at 23:00; Stop 12/29/16 at 22:59 Nicotine (Nicoderm Cq 14mg) 1 patch DAILY TD Last administered on 12/01/16t 08: 43; Start 11/30/16 at 09:00; Stop 12/30/16 at 08:59 Trazodone HCl (Desyrel) 50 mg QHSP PRN PO INSOMNIA; Start 11/29/16 at 23:00; Stop 12/29/16 at 22:59 Allergies Coded Allergies: No Known Allergies (Unverified , 10/23/16) Odette Meyers Dec 01, 2016 09:00
[2016-12-01 18:00] VITALS: BP 118/72
[2016-12-02 07:00] VITALS: BP 123/58
[2016-12-02] MEDS: NICOTINE 14 MG/24 HR TRANSDERMAL TD SCH (08:33)
--- NOTE | 2016-12-02 14:58 | IPNPDOC ---
[facility] Progress Note Progress Note DATE OF SERVICE: 12/02/16 HISTORY: Patient is a 21-year-old male, who was recently discharged from [facility] after an overdose on Benadryl with intent to kill self, now readmiktted due to "friend" informed his command that he was suicidal with a plan to kill self. Patient denies ever being suicidal, reiterates today that female friend had alter motives for telling command patient was suicidal, notes friend did not approve of a sexual relationship in which patient was involved last weekend. Patient does not deny making statements alluding to suicide/self- harm, however, maintains that statements were made in jest and were "misunderstood" by friend. Patient reiterates today that he is glad he was not successful when he attempted suicide approximately one month ago, informs poem writer he feels he has "too much to live for," and again notes, "I couldn't do that to my family." Patient denies symptoms of anxiety and depression, denies suicidal and homicidal ideation, denies audiovisual hallucinations, denies urge to engage in self-injurious behavior. Psychotropic medication options were again reviewed with patient today and patient continues to deny need for psychotropic medications. Patient states he is sleeping well, denies nightmares , indicates energy level and appetite are stable, and denies challenges with concentration and focus. Patient denies symptoms of physical pain and presents with no signs of acute distress at time of interaction. VITAL SIGNS: See below. NEW TEST RESULTS: No new results PAST MEDICAL/SURGICAL HISTORY: Labs on admission indicate low anion gap. History of tonsillectomy/adenoidectomy, appendectomy, left eyelid repair. Patient denies history of seizure or head injury. UDS negative 10/23/16 EKG SINUS TACHYCARDIA ABNORMAL RHYTHM ECG NONSPECIFIC ST T WAVE CHANGES PROLONGED QTC CURRENT MEDICATIONS: See below. MENTAL STATUS EXAMINATION: General appearance: Patient is a 21-year old male, who is pleasant and cooperative, makes improved eye contact, exhibits good personal hygiene, dressed in hospital clothing, ambulates with steady gait, appears stated age Speech: Of normal rate, rhythm, volume, coherent, spontaneous. Thought processes: Linear, logical, goal-directed. Thought content: Denies irrational, logical thinking, no paranoia noted. Abstract reasoning and computation: Requires further evaluation. Description of associations: Appear intact. Description of abnormal or psychotic thoughts: Denies any suicidal or homicidal ideation, denies auditory or visual hallucinations, does not appear to be responding to internal stimuli, does not endorse any bizarre or paranoid ideation, denies preoccupation with violence or obsessions. Judgment: Limited, some improvement during treatment Insight: Limited, some improvement. Orientation: A and O 3. Recent and remote memory: Appear intact. Attention span and concentration: Appear adequate. Fund of knowledge: Appears adequate. Mood: "I'm fine, ready to get back to [employer] and they don't feel I need to be here, I'm okay." Patient denies anxiety and depression, no mood lability noted Affect: Constricted, congruent with mood. DIAGNOSES: Unspecified depressive disorder, rule out adjustment disorder ASSESSMENT: Patient appears to be adjusting to unit, has been visible, attending groups, socializing well with peers, is cooperative with staff. Patient continues to indicate he does not need to be in the hospital, denies being suicidal prior to current admission, however, when confronted on statements related to suicidal thinking, does not deny. Patient minimizes symptoms less today, continues to rationalize behavior and events which led to current hospitalization. Patient again denies alcohol use at time of incident. Patient continues to decline psychotropic medications citing lack of need and noting, "I don't like medication," also continues to deny need for medication for sleep. Will continue to monitor patient's adjustment to the inpatient environment and will encourage patient to consider taking psychotropic medications as indicated. Will evaluate patient's safety and discharge readiness with projected discharge date set for Monday after meeting which in [facility] if patient is stable. Patient states when prepared for discharge he plans to return to [place] and will resume this patient in outpatient psychotherapy services and [facility], will evaluate need for IOP referral. MANAGEMENT PLAN: Encourage patient to consider taking psychotropic medication to address symptoms if appropriate Maintain safety precautions Patient to attend groups and participate in unit programming to develop coping strategies Engage patient in discharge planning process and arrange meeting with [facility] to ensure safe discharge planning when appropriate Patient to follow up with [place] [facility] upon discharge TIME SPENT:25 minutes. Vital Signs Vital Signs Date Time Temp Pulse Resp B/P Pulse Ox O2 Delivery O2 Flow Rate FiO2 12/02/16 07:00 98.3 71 16 123/58 11/30/16 06:17 Room Air 11/29/16 21:38 97 Current Medications Current Medications Acetaminophen (Tylenol Tab) 650 mg Q6HP PRN PO HEADACHE or DISCOMFORT; Start at 23:00; Stop 12/29/16 at 22:59 Al Hydrox/Mg Hydrox/Simethicone (Mylanta) 30 ml Q4HP PRN PO HEARTBURN/ INDIGESTION; Start 11/29/16 at 23:00; Stop 12/29/16 at 22:59 Home Med (Med Rec Complete!) ASDIRECTED XX ; Start 11/29/16 at 21:15; Stop at 21:15; Status DC Magnesium Hydroxide (Milk Of Magnesia) 30 ml DAILYPRN PRN PO CONSTIPATION; Start 11/29/16 at 23:00; Stop 12/29/16 at 22:59 Nicotine (Nicoderm Cq 14mg) 1 patch DAILY TD Last administered on 12/02/16t 08: 33; Start 11/30/16 at 09:00; Stop 12/30/16 at 08:59 Trazodone HCl (Desyrel) 50 mg QHSP PRN PO INSOMNIA; Start 11/29/16 at 23:00; Stop 12/29/16 at 22:59 Allergies Coded Allergies: No Known Allergies (Unverified , 10/23/16) Odette Meyers Dec 02, 2016 14:58
[2016-12-02 18:00] VITALS: BP 123/67
[2016-12-03 06:18] VITALS: BP 121/65
[2016-12-03] MEDS: NICOTINE 14 MG/24 HR TRANSDERMAL TD SCH (09:07)
[2016-12-03 18:00] VITALS: BP 124/69
--- NOTE | 2016-12-03 19:15 | IPNPDOC ---
[facility] Progress Note Progress Note DATE OF SERVICE: 12/03/16 INTERVAL HISTORY: Medication Side effects: On no psychotropic medications Behavior/events: Has been reported to be friendly and amenable with no events overnight Group Attendance: Has been attending groups Psychiatric Symptoms: Reports that he has been suffering some mild anxiety related to his inpatient stay but denies any current depressed symptoms or other psychiatric since affect. States that the social environment appears to provoking his anxiety more as the worst particularly acute. VITAL SIGNS: See below. NEW TEST RESULTS: See below CURRENT MEDICATIONS: See below. MENTAL STATUS EXAMINATION: General: Well dressed with good hygiene Speech: Spontaneous and fluid Thought processes: Linear and logical Thought content: Future orientated Abstract reasoning, and computation: Intact Description of associations: Intact Description of abnormal or psychotic thoughts:Denies any suicidal or homicidal ideation. Denies any auditory or visual hallucinations. Does not appear to be responding to internal stimuli. Does not appear to be endorsing any bizarre or paranoid ideation. Judgment: Fair Insight: Fair Orientation: Alert and orientated 3 Recent and remote memory: Intact Attention span and concentration: Intact Fund of knowledge: Adequate Mood: "Okay" Affect: Mildly anxious with a constricted range DIAGNOSES: 1. Unspecified depressive disorder. ASSESSMENT: Stable MANAGEMENT PLAN: Medications: Patient desires to be on no medications currently Psychotherapy: Encourage group attendance Social: Encouraged primary treatment team to consider discharge Misc: None Disposition: The patient will need of further inpatient stay to address disposition safety planning. TIME SPENT: 20 minutes. Vital Signs Vital Signs Date Time Temp Pulse Resp B/P Pulse Ox O2 Delivery O2 Flow Rate FiO2 12/03/16 06:18 98.4 68 14 121/65 11/30/16 06:17 Room Air 11/29/16 21:38 97 Current Medications Current Medications Acetaminophen (Tylenol Tab) 650 mg Q6HP PRN PO HEADACHE or DISCOMFORT; Start at 23:00; Stop 12/29/16 at 22:59 Al Hydrox/Mg Hydrox/Simethicone (Mylanta) 30 ml Q4HP PRN PO HEARTBURN/ INDIGESTION; Start 11/29/16 at 23:00; Stop 12/29/16 at 22:59 Home Med (Med Rec Complete!) ASDIRECTED XX ; Start 11/29/16 at 21:15; Stop at 21:15; Status DC Magnesium Hydroxide (Milk Of Magnesia) 30 ml DAILYPRN PRN PO CONSTIPATION; Start 11/29/16 at 23:00; Stop 12/29/16 at 22:59 Nicotine (Nicoderm Cq 14mg) 1 patch DAILY TD Last administered on 12/03/16t 09: 07; Start 11/30/16 at 09:00; Stop 12/30/16 at 08:59 Trazodone HCl (Desyrel) 50 mg QHSP PRN PO INSOMNIA; Start 11/29/16 at 23:00; Stop 12/29/16 at 22:59 Allergies Coded Allergies: No Known Allergies (Unverified , 10/23/16) GME ATTESTATION My preceptor for this patient encounter was physically present in the building during the encounter and was fully available. As needed, all aspects of the patient interview, examination, medical decision making process, and medical care plan development were reviewed and approved by the preceptor. Preceptor is aware and concurs with the plan as stated in the body of this note and will attest to such by his/her cosignature. ANDREY ANDERSEN DO Dec 03, 2016 19:15
[2016-12-04 06:36] VITALS: BP 142/71
[2016-12-04] MEDS: NICOTINE 14 MG/24 HR TRANSDERMAL TD SCH (09:00)
[2016-12-04 18:00] VITALS: BP 124/63
--- NOTE | 2016-12-04 18:11 | IPNPDOC ---
[facility] Progress Note Progress Note DATE OF SERVICE: 12/04/16 HISTORY: 21 year old mal with history of depression and previous suicide attempt by OD of [place] who was bought to the Hospital for suicidal thoughts. he denies it and states that it was a peer the one who told one of his SONY that he was suicidal. VITAL SIGNS: See below. NEW TEST RESULTS: CURRENT MEDICATIONS: See below. MENTAL STATUS EXAMINATION: Patient is a 21-year old male, who is alert, cooperative, friendly, with good rapport and good eye contact Speech: Is normal Language skills are good. Thought processes including: Linear, coherent, goal directed. Thought content: negative for suicidal thoughs, homicidal thoughts or psychosis. . Abstract reasoning, and computation: good. Description of associations: No loosening of associations. Description of abnormal or psychotic thoughts: . Judgment: Improved Insight: improved Orientation: oriented x 3 Recent and remote memory: Intact Attention span and concentration: Good Language: Normal. Fund of knowledge: Full. Mood: "I feel well.". Affect: Euthymic ASSESSMENT:Pt. is stable to be discharged this week MANAGEMENT PLAN: continue treatment as outpatient. TIME SPENT: 15 minutes. Vital Signs Vital Signs Date Time Temp Pulse Resp B/P Pulse Ox O2 Delivery O2 Flow Rate FiO2 12/04/16 06:36 98.0 87 16 142/71 11/30/16 06:17 Room Air 11/29/16 21:38 97 Current Medications Current Medications Acetaminophen (Tylenol Tab) 650 mg Q6HP PRN PO HEADACHE or DISCOMFORT; Start at 23:00; Stop 12/29/16 at 22:59 Al Hydrox/Mg Hydrox/Simethicone (Mylanta) 30 ml Q4HP PRN PO HEARTBURN/ INDIGESTION; Start 11/29/16 at 23:00; Stop 12/29/16 at 22:59 Home Med (Med Rec Complete!) ASDIRECTED XX ; Start 11/29/16 at 21:15; Stop at 21:15; Status DC Magnesium Hydroxide (Milk Of Magnesia) 30 ml DAILYPRN PRN PO CONSTIPATION; Start 11/29/16 at 23:00; Stop 12/29/16 at 22:59 Nicotine (Nicoderm Cq 14mg) 1 patch DAILY TD Last administered on 12/04/16t 09: 00; Start 11/30/16 at 09:00; Stop 12/30/16 at 08:59 Trazodone HCl (Desyrel) 50 mg QHSP PRN PO INSOMNIA; Start 11/29/16 at 23:00; Stop 12/29/16 at 22:59 Allergies Coded Allergies: No Known Allergies (Unverified , 10/23/16) STUART BLANCO MD Dec 04, 2016 18:11
[2016-12-05 06:43] VITALS: BP 117/62
[2016-12-05] MEDS: NICOTINE 14 MG/24 HR TRANSDERMAL TD SCH (08:34)
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
== END 2016-12-05 11:30 | disposition home or self-care (01) | DRG 881 ==
LOC: M ED 16:43 → M ED INP 21:20 → M PSY 21:50
PROVIDERS: ADMIT Psychiatry & Neurology Psychiatry; ATTEND Psychiatry & Neurology Psychiatry
DX: F32.9 Major depressive disorder, single episode, unspecified (principal); F41.9 Anxiety disorder, unspecified; F43.20 Adjustment disorder, unspecified; F17.210 Nicotine dependence, cigarettes, uncomplicated; Z81.1 Family history of alcohol abuse and dependence; Z81.8 Family history of other mental and behavioral disorders; Z91.5 Personal history of self-harm